=== PATIENT | male | born 2000 | race Caucasian/White ===

== ENCOUNTER 2025-02-12 07:49 | Outpatient (CLI) | payer BC | END 2025-02-12 07:50 | disposition home or self-care (01) | LOC: ULT 07:49 | DX: R74.8 Abnormal levels of other serum enzymes (principal) | CPT/HCPCS: 76700 ==

== ENCOUNTER 2025-03-10 07:16 | Day surgery (SDC) | payer BC ==
[2025-03-10 08:01] LABS: #Basophils 0.08 10x3/uL (0.0-0.2); #Eosinophils 0.33 10x3/uL (0.0-0.7); #Monocytes 1.12 10x3/uL (0.11-0.59); #Neutrophils 6.70 10x3/uL (1.40-6.50); %Basophils 0.7 % (0.0-1.0); %Eosinophils 2.8 % (0.0-10.0); %Lymphocytes 28.6 % (21.0-51.0); %Monocytes 9.6 % (0.0-10.0); %Neutrophils 57.7 % (42.0-75.0); Hematocrit 44.5 % (42.0-52.0); Hemoglobin 14.7 g/dL (14.0-18.0); Mean Corpuscular Hemoglobin 30.9 pg (27.0-31.0); Mean Corpuscular Volume 93.7 fL (78.0-98.0); Platelet Count 259 10x3/uL (130-400); Red Blood Cell (RBC) Count 4.75 mill/uL (4.70-6.10); White Blood Cell (WBC) Count 11.63 10x3/uL (4.8-10.8)
[2025-03-10 08:26] LABS: INR-International Normal Ratio 1.0; PTT 28.3 sec (22.9-36.1); Prothrombin Time 13.2 sec (12.0-14.7)
[2025-03-10] MEDS ORDERED: Sodium Bicarbonate 2.5 MEQ/5 ML SDV ONE (09:19)
[2025-03-10] MEDS ORDERED: Lidocaine 1% w/Epinephrine 1:100K 20 ML VIAL ONE (09:19)
[2025-03-10] MEDS ORDERED: Ketorolac Tromethamine 30 MG (1 mL) VIAL IVP SCH (11:15)
== END 2025-03-10 13:01 | disposition home or self-care (01) ==
LOC: ULT 07:16
PROVIDERS: ATTEND Internal Medicine Gastroenterology
PROC: 0FB Hepatobiliary System and Pancreas, Excision (ICD-10-PCS; principal; 2025-03-10)
DX: R79.89 Other specified abnormal findings of blood chemistry (principal)
CPT/HCPCS: 36000; 36415; 47000; 76942; 85025; 85610; 85730; 88307; J3010